=== PATIENT | male | born 1975 | race Caucasian/White ===

== ENCOUNTER → 2017-02-19 | Outpatient (CLI) | payer BC ==
[~2017-02-19] MED LIST: DOXYCYCLINE HY100 MG PO; HYDROCHLOROTHIA25 MG PO; PERCOCET 5/31 TABLET PO; TOPAMAX100 MG PO; TRAMADOL HCL300 MG PO; ZANAFLEX4 M1 PO
== END | disposition home or self-care (01) ==
LOC: CDC 14:19
DX: Z01.810 Encounter for preprocedural cardiovascular examination (principal); M77.01 Medial epicondylitis, right elbow; G56.21 Lesion of ulnar nerve, right upper limb
CPT/HCPCS: 93000

== ENCOUNTER 2017-04-16 17:28 | Emergency (ER) | payer BC ==
[~2017-04-16] VITALS: Ht 172.7 cm; Wt 79.7 kg
[2017-04-16] MEDS ORDERED: ROBITUSSIN AC,T10 ML PO (19:06)
[2017-04-16 19:43] VITALS: BP 124/80
== END 2017-04-16 19:44 | disposition home or self-care (01) ==
LOC: EME 17:28
DX: J11.1 Influenza due to unidentified influenza virus with other respiratory manifestations (principal); Z87.891 Personal history of nicotine dependence
CPT/HCPCS: 71046; 99281; 99284